=== PATIENT | female | born 1980 | race Caucasian/White ===

== ENCOUNTER → 2023-05-10 | Outpatient (CLI) | payer OTHER, SELFPAY ==
[2023-05-10 15:50] LABS: Absolute Lymphocyte Count 1.79 X10^3/uL (0.83-4.51); Absolute Neutrophil Count 3.8 X10^3/uL (2.0-7.7); Basophil# 0.02 X10^3/uL; Basophil% 0.3 % (0-1); Eosinophil# 0.03 X10^3/uL; Eosinophils% 0.5 % (0-5); Hematocrit 37.6 % (37-47); Hemoglobin 12.4 g/dL (12.0-15.0); Lymphocyte # 1.79 X10^3/ul (0.83-4.51); Lymphocyte % 29.5 % (19-41); Mean Corpuscular Hgb 28.4 pg (27.0-32.0); Mean Corpuscular Volume 86.2 fL (81-99); Mean Platelet Vol. 10.9 fl (6.2-12.0); Monocyte# 0.37 X10^3/uL; Monocyte% 6.1 % (0-10); NRBC Flagged by Analyzer 0 % (0-5); Neutrophil # 3.83 X10^3/uL (2.7-7.7); Neutrophil % 63.3 % (47-70); Platelet Count 199 K/mm3 (150-450); RBC Distribution Width CV 12.5 % (11.6-14.6); RBC Distribution Width SD 39.4 fl (35.1-43.9); Red Blood Count 4.36 M/mm3 (4.2-5.4); White Blood Count 6.1 K/mm3 (4.4-11.0)
--- OUTSIDE RECORDS SUMMARY | 2023-05-10 16:34 | XMS RPT_ITS | CCD ---
Author Name Unknown Address [facility] [place] [address] Organization [facility] Allergies Allergy Classification Reported Allergen(s) Allergy Type Date of Onset Reaction(s) Facility (1 source) Dust; Translations: [DUST] Propensity to adverse reactions (disorder) 6 [facility] Repository (1 source) OTHER; Translations: [OTHER] Propensity to adverse reactions (disorder) 6 [facility] Repository Results Test Name Value Interpretation Reference Range Facil ity Encounters Encounter Date Encounter Type Care Provider Facility Start: 04-22-2023 End: 04-22-2023 ambulatory Facility:[facility] Payers Date Payer Category Payer Unknown [id number] Progress note 04-22-2023 Note Date & Type Note Facility 04-22-2023 Note HNO ID: [id number] Author: Jose F Paulino APRN.[employer] Service: ? Author Type: Nurse Practitioner Type: Progress Notes Filed: 04/22/2023 12:03 PM Note Text: Subjective HPI Nontoxic-appearing female presents urgent care chief complaint eye pain. Duration of symptoms 5 days. Associated symptoms eye redness sensitivity eye pain. Patient states pain is 6-7 out of 10 at times. Eye redness is only improved with Visine. Denies any eye injury. No flashes light or floaters. No visual changes. Denies contact lens use. .Patient presents with: Eye Problem: Left eye pain and redness and sensitive to light x 5 days PAST MEDICAL HISTORY Diagnosis Date Abnormal glandular Papanicolaou smear of cervix 2000 Abn. Pap smear (cervix) PAST SURGICAL HISTORY Procedure Laterality Date COLPOSCOPY CERVIX UPPER/ADJACENT VAGINA 2000 Colposcopy ESSURE 2010 PAST SURGICAL HISTORY OF 2000 laser of cervix ALLERGIES Dust and Enviromental [Other] MEDICATIONS fluticasone (FLONASE) 50 mcg/actuation nasal spray Use 2 Sprays in each nostril once daily. fluconazole (DIFLUCAN) 150 mg tablet Take 1 tablet today and repeat in 3 days (Patient not taking: Reported on 06/09/2018 ) FAMILY HISTORY Problem Relation Age of Onset Hypertension Mother Hypertension Father Cancer Father lung cancer Alcohol/Drug Father etoh Heart Father Thyroid Nodule Brother Emphysema Maternal Grandmother Osteoporosis Maternal Grandmother Aneurysm Paternal Grandmother Social History Tobacco Use Smoking status: Former Packs/day: 1.00 Years: 2.00 Additional pack years: 0.00 Total pack years: 2.00 Types: Cigarettes Quit date: 08/13/2003 Years since quittin.7 Smokeless tobacco: Never Substance Use Topics Alcohol use: Yes Comment: RARELY TWICE YEARLY,NOT WHILE Drug use: No BP 110/78 Pulse 70 Temp 36.4 ?C (97.5 ?F) (Tympanic) Resp 18 Wt 71.9 kg (158 lb 9.6 oz) LMP 05/18/2018 (Exact Date) SpO2 99% BMI 25.22 kg/m? Review of Systems Constitutional: Negative for chills, fever and malaise/fatigue. HENT: Negative for congestion, ear discharge, ear pain, sinus pain and sore throat. Eyes: Positive for photophobia, pain, discharge and redness. Negative for blurred vision and double vision. Respiratory: Negative for cough, hemoptysis, sputum production, shortness of breath, wheezing and stridor. Cardiovascular: Negative for chest pain. Gastrointestinal: Negative for abdominal pain, diarrhea, nausea and vomiting. Musculoskeletal: Negative for myalgias. Skin: Negative for itching and rash. Neurological: Negative for dizziness and headaches. Objective Physical Exam Constitutional: General: She is not in acute distress. Appearance: She is not toxic-appearing. HENT: Head: Normocephalic. Nose: Nose normal. Eyes: General: Lids are everted, no foreign bodies appreciated. Vision grossly intact. Left eye: No foreign body, discharge or hordeolum. Extraocular Movements: Left eye: Normal extraocular motion and no nystagmus. Conjunctiva/sclera: Left eye: Left conjunctiva is injected. No chemosis, exudate or hemorrhage. Pupils: Pupils are equal, round, and reactive to light. Comments: Moderate redness noted left eye. Cardiovascular: Rate and Rhythm: Normal rate. Pulmonary: Effort: Pulmonary effort is normal. No respiratory distress. Musculoskeletal: Cervical back: Normal range of motion. Skin: General: Skin is warm and dry. Neurological: General: No focal deficit present. Mental Status: She is alert. ASSESSMENT/PLAN: 1. Pain of left eye - ICD9: 379.91, ICD10: H57.12 Visual acuity unchanged. Diagnosed with left eye pain. Concerned about possible uveitis. Recommended following up with ophthalmology today for further evaluation care. Patient states will call agricultural produce washer office at the completion of this visit. Jose F Paulino APRN.[facility] Summary Purpose Family History No Family History Records Found Advance Directives No Advanced Directives Records Found Additional Source Comments INFORMATION SOURCE (unrecogn ized section and content) FOR RECORDS PERTAINING TO PATIENTS WHO ARE OR HAVE BEEN ENROLLED IN A CHEMICAL DEPENDENCY/SUBSTANCEABUSE PROGRAM, SOME INFORMATION MAY BE OMITTED. This clinical summary was aggregated from multiple sources. Caution should be exercised in using it in the provision of clinical care. This summary normalizes information from multiple sources, and as a consequence, information in this document may materially change the coding, format and clinical context of patient data. In addition, data may be omitted in some cases. CLINICAL DECISIONS SHOULD BE BASED ON THE PRIMARY CLINICAL RECORDS. [employer] provides no warranty or guarantee of the accuracy or completeness of information in this document.
[2023-05-10 16:49] LABS: ALB/GLOB Ratio 1.1 RATIO (0.9-2.4); AST(SGOT) 16 U/L (15-37); Alanine Aminotransfer ALT/SGPT 17 U/L (13-56); Albumin, Serum 4.4 g/dL (3.2-5.0); Alkaline Phosphatase 61 U/L (45-117); Anion Gap 7 (5-15); BUN 8 mg/dL (7-18); BUN/Creat Ratio 12.6 RATIO (10-20); Calcium,Total 9.5 mg/dL (8.5-10.1); Chloride 103 mmol/L (98-107); Cholesterol 205 mg/dL (200); Creatinine, Serum 0.63 mg/dL (0.55-1.02); EST Glomerular Filtration Rate 109 mL/min (>60); Est Glom Filt Rate - Afr Amer 131 mL/min (>60); Globulin 3.9 g/dL (2.2-4.2); Glucose 86 mg/dL (74-106); High Density Lipoprotein 58 mg/dL; Potassium 4.1 mmol/L (3.5-5.1); Protein, Total 8.3 g/dL (6.4-8.2); Sodium Level 136 mmol/L (136-145); Triglycerides 43 mg/dL; Very Low Density Lipoprotein 9 mg/dL (5-40)
== END | disposition home or self-care (01) ==
LOC: BIMLAB 14:24
PROVIDERS: PCP Internal Medicine; Referring Provider Internal Medicine; Visit Provider Internal Medicine
DX: Z13.6 Encounter for screening for cardiovascular disorders (principal); Z13.1 Encounter for screening for diabetes mellitus
CPT/HCPCS: 36415; 80053; 80061; 85025

== ENCOUNTER → 2023-05-18 | Outpatient (CLI) | payer OTHER, SELFPAY ==
--- NOTE | 2023-05-18 16:11 | BI_ITS ---
MAMMOGRAPHY - BILATERAL SCREENING REASON FOR EXAM: Female, 42 years old. Routine annual screening examination. PERTINENT HISTORY: Non-contributory. TECHNIQUE: Digital bilateral breast erlinda (3D mammographic acquisition) in the CC and MLO projections. 2-D mediolateral oblique (MLO) and craniocaudad (CC) views of both breasts were obtained. CAD: Full Field Digital Mammography with Computer Added Detection was performed. COMPARISON: Comparison is made with prior outside examination dated November 01, 2012. FINDINGS: Breast Composition: The breasts are extremely dense, which lowers the sensitivity of mammography. There are no dominant masses or suspicious calcifications. No other significant abnormalities are identified. BI/SCRN MAMM (CAD)W/ERLINDA BILAT IMPRESSION: Stable bilateral screening mammogram. Yearly follow-up mammogram recommended. (A) ASSESSMENT CATEGORY: BIRADS Category 1: Negative. A letter regarding these results will be sent to the patient by the facility within 30 days. Approximately 10% of breast cancers are not detected by mammography. A normal mammogram should not delay biopsy of a clinically suspicious abnormality. [id number] Electronically Signed: Camron Cristina MD at 8:55 EST ,
--- OUTSIDE RECORDS SUMMARY | 2023-05-18 17:20 | XMS RPT_ITS | CCD ---
Author Name Unknown Address [facility] [place] [id number] Organization [facility] Allergies Allergy Classification Reported Allergen(s) Allergy Type Date of Onset Reaction(s) Facility (1 source) Dust; Translations: [DUST] Propensity to adverse reactions (disorder) 6 [facility] Repository (1 source) OTHER; Translations: [OTHER] Propensity to adverse reactions (disorder) 6 [facility] Repository Results Test Name Value Interpretation Reference Range Facil ity Encounters Encounter Date Encounter Type Care Provider Facility Start: 04-22-2023 End: 04-22-2023 ambulatory Facility:[facility] Payers Date Payer Category Payer Unknown [id number] Progress note 04-22-2023 Note Date & Type Note Facility 04-22-2023 Note HNO ID: [id number] Author: Jose F Paulino APRN.POCKET [employer]KER Service: ? Author Type: Nurse Practitioner Type: [...] further evaluation care. Patient states will call software sales manager office at the completion of this visit. Jose F Paulino APRN.[facility] Summary Purpose Family History No Family History [...] BE BASED ON THE PRIMARY CLINICAL RECORDS. [employer] provides no warranty or guarantee of the accuracy or completeness of information in this document.
== END | disposition home or self-care (01) ==
LOC: OPBI 16:11
PROVIDERS: PCP Internal Medicine; Referring Provider Internal Medicine; Visit Provider Internal Medicine
DX: Z12.31 Encounter for screening mammogram for malignant neoplasm of breast (principal)
CPT/HCPCS: 77063; 77067

== ENCOUNTER 2023-07-16 00:21 | Emergency (ER) | payer OTHER, SELFPAY ==
[2023-07-16 00:22] VITALS: BP 155/126; PULSE 95; RESP 16; TEMP 36.8; O2SAT 97
[2023-07-16 00:23] VITALS: BP 155/127; PULSE 83; RESP 16; TEMP 36.8; O2SAT 99; BMI 25.0
--- NOTE | 2023-07-16 00:31 | EDS_ITS ---
HPI History of Present Illness Chief Complaint: ETOH Intox Detail of Chief Complaint: Alcohol intoxication Informant: patient and EMS Narrative Narrative: Patient presents to the emergency department via EMS from home with complaint of alcohol intoxication. Her children called EMS because her friends had taken her to the bar when she came home she was quite intoxicated and vomiting. Patient denies any complaints although she is very poor historian. She did not know if she had been vomiting but there was emesis on her face. Patient was celebrating her birthday which is tomorrow. Patient denies any falls or head injuries. PFSH PFS Medical History (Updated 07/16/23 @ 06:[address] Antoinette Aguilar DO) Episcleritis Home Medications NK 07/16/23 [History Last Taken Unknown] Allergy/AdvReac Type Severity Reaction Status Date / Time No Known Allergies Allergy Verified 07/16/23 00:22 Family History (Updated 05/03/23 @ 17:[address] Marianne Dong MD) Mother Hypertension Alcoholism Anxiety Hyperlipidemia Optic neuropathy Brother Bleeding disorder Father Lung cancer Myocardial infarction Alcoholism Grandfather Alcoholism Sister Anxiety Depression Hyperlipidemia Aunt Anxiety Surgical History Encounter for Essure implantation Social History (Updated 05/03/23 @ 15:[address] Marianne Dong MD) adopted: No household members: children current occupational status: employed current occupation: [employer] pets and animals: Yes pets and animals: cat(s) and dog(s) history of recent travel: No Smoking Status: Former smoker pack-years: 6 Tobacco: How many years used: 6 Electronic Cigarette Use: not used alcohol intake: current alcohol intake frequency: holidays/special occasions only substance use type: does not use caffeine: Yes (3) Type: carbonated beverages frequency: does not exercise seatbelt use: always do you feel safe at home: Yes ROS ROS ED ROS Narrative Alcohol intoxication Review of Systems ROS Unobtainable: other Constitutional Constitutional ED: Reports lethargy; Denies chills, fever(s), sweats or weight loss Eyes Eyes: Denies blurry vision, change in vision or diplopia ENT ENT ED: Denies rhinorrhea or sore throat Cardiovascular Cardiovascular: Denies chest pain, orthopnea or racing heartbeat Respiratory/Chest Respiratory/Chest: Denies cough, dyspnea, dyspnea on exertion, orthopnea or sputum Gastrointestinal Gastrointestinal: Reports nausea and vomiting; Denies abdominal pain or diarrhea Genitourinary Genitourinary ED: Denies dysuria, hematuria or urinary frequency Musculoskeletal Musculoskeletal: Denies arthralgias, back pain, myalgias or neck pain Integumentary Denies abscess, Abrasions or rash Neurologic Neurologic: Denies headache(s) or weakness Psychiatric Psychiatric: Denies anxiety, depression or suicidal thoughts Endocrine Endocrinology: Denies polydipsia, polyphagia or polyuria Hematologic/Lymphatic Hematologic/Lymphatic: Denies easy bleeding, easy bruising or lymphadenopathy Allergic/Immunologic Allergic/Immunologic ED: Denies mouth swelling, tongue swelling or urticaria EXAM Physical Exam Const Vital Signs: 07/16/23 00:22 07/16/23 00:23 07/16/23 02:22 Temperature 98.3 F 98.3 F Temperature Source Oral Oral Pulse Rate 95 83 78 Respiratory Rate 16 16 18 Blood Pressure 155/126 H 155/127 H 111/56 L Blood Pressure Mean 135 136 74 Blood Pressure Source Monitor Blood Pressure Position Semi-Fowlers Blood Pressure Location Right Arm Pulse Ox 97 99 100 Oxygen Delivery Method Room Air 07/16/23 04:00 07/16/23 06:00 07/16/23 06:24 Temperature 97.8 F Temperature Source Pulse Rate 80 69 69 Respiratory Rate 18 18 16 Blood Pressure 115/70 104/75 104/75 Blood Pressure Mean 85 84 84 Blood Pressure Source Blood Pressure Position Blood Pressure Location Pulse Ox 99 99 Oxygen Delivery Method Positive well nourished and well developed General Appearance ED: well developed and NAD HEENT Reports TM's clear and moist mucous membranes normocephalic and atraumatic; Negative for trauma or tenderness Tympanic Membrane ED: Yes TM's clear Eyes PERRL and EOMs intact bilaterally General Eye ED: Negative for pale conjunctiva or scleral icterus Neck no lymphadenopathy, supple and no JVD General: Negative for tenderness Chest Wall inspection of chest normal and palpation of chest normal Chest: Negative for tenderness Resp normal respiratory effort and clear to auscultation bilaterally Effort and Inspection: Negative for respiratory distress or pain with movement Auscultation: Negative for rhonchi, wheezes or diminished lung sounds Cardio regular rate, regular rhythm, S1 normal heart sound, S2 normal heart sound and no murmurs Peripheral Pulses: pulses 2+ throughout GI normal to inspection, nondistended, normoactive bowel sounds, soft to palpation, non-tender, non-distended and no masses Back/Spine no CVA tenderness and no thoracic nor lumbar tenderness Extremity normal to inspection General Extremety ED: Negative for edema General Extremity: Negative for edema Neuro oriented x3, CN's II-XII intact bilaterally, no sensory deficits noted and gait normal Sensorium / Orientation: awake, alert, oriented to person, oriented to place and oriented to time Motor Exam: strength 5/5 throughout and strength abnormal Psych mental status grossly normal Skin no rashes or lesions noted and no wounds MDM MDM MDM Narrative Medical decision making narrative: Patient presents with alcohol intoxication. IV line established. She was medicated with Zofran IV. CBC with differential obtained showed a white count of 5.5 with hemoglobin 11.5 and platelet count of 214. Chemistries unremarkable. LFTs were normal. Alcohol was 266. hCG was negative. Patient will be observed in the emergency department till alcohol level normalizes. Patient has been here almost 6 hours and she had no further vomiting. She has been ambulatory to the bathroom. Will discharge when family members can pick her up. Lab Data Attestation: I reviewed the patient's lab results. Labs: Laboratory Results - last 24 hr 07/16/23 00:45 WBC 5.5 RBC 4.19 L Hgb 11.5 L Hct 36.2 L MCV 86.4 MCH 27.4 MCHC 31.8 L RDW Std Deviation 40.6 RDW Coeff of [place] 12.9 Plt Count 214 MPV 9.8 Immature Gran % (Auto) 0.200 Neut % (Auto) 82.1 H Lymph % (Auto) 13.7 L [place] % (Auto) 3.6 Eos % (Auto) 0.0 Baso % (Auto) 0.4 Absolute Neuts (auto) 4.5 Absolute Lymphs (auto) 0.76 L Nucleated RBC % 0 Sodium 143 Potassium 3.9 Chloride 110 H Carbon Dioxide 27.0 Anion Gap 6 BUN 7 Creatinine 0.58 Estim Creat Clear Calc 121.62 Est GFR (MDRD) Af Amer 145 Est GFR (MDRD) Non-Af 120 BUN/Creatinine Ratio 12.0 Glucose 119 H Calcium 8.8 Total Bilirubin 0.20 AST 19 ALT 19 Alkaline Phosphatase 59 Total Protein 7.9 Albumin 4.2 Globulin 3.7 Albumin/Globulin Ratio 1.1 Serum , Qual NEGATIVE Ethyl Alcohol 266.0 Discharge Plan Triage Chief Complaint: ETOH Intox ED Provider: Antoinette Aguilar Dx/Rx/DC Orders Clinical Impression: Alcohol intoxication Instructions: ED Alcohol Intoxication Prescriptions: No Action NK Primary Care Provider: Marianne Dong Referrals: Marianne Dong MD [Primary Care Provider] - 3-5 Days Disposition Disposition: Home, Self Care Discharge Date/Time: 07/16/23 06:25
[2023-07-16] MEDS: 0.9% Normal Saline (1000mL) 1,000 ML 1000 ML IV (00:44)
[2023-07-16] MEDS: Ondansetron 4 MG/2 ML Vial IV (00:44)
[2023-07-16 00:54] LABS: Absolute Lymphocyte Count 0.76 X10^3/uL (0.83-4.51); Absolute Neutrophil Count 4.5 X10^3/uL (2.0-7.7); Basophil# 0.02 X10^3/uL; Basophil% 0.4 % (0-1); Hematocrit 36.2 % (37-47); Hemoglobin 11.5 g/dL (12.0-15.0); Lymphocyte # 0.76 X10^3/ul (0.83-4.51); Lymphocyte % 13.7 % (19-41); Mean Corp Hgb Conc 31.8 g/dL (32-36); Mean Corpuscular Hgb 27.4 pg (27.0-32.0); Mean Corpuscular Volume 86.4 fL (81-99); Mean Platelet Vol. 9.8 fl (6.2-12.0); Monocyte% 3.6 % (0-10); NRBC Flagged by Analyzer 0 % (0-5); Neutrophil # 4.54 X10^3/uL (2.7-7.7); Neutrophil % 82.1 % (47-70); Platelet Count 214 K/mm3 (150-450); RBC Distribution Width CV 12.9 % (11.6-14.6); RBC Distribution Width SD 40.6 fl (35.1-43.9); Red Blood Count 4.19 M/mm3 (4.2-5.4); White Blood Count 5.5 K/mm3 (4.4-11.0)
[2023-07-16 01:04] LABS: Internal QC Validated? YES +Cl - CLEAR BKGD; Pregnancy, Serum, hCG Quali. NEGATIVE Negative
[2023-07-16 01:12] LABS: ALB/GLOB Ratio 1.1 RATIO (0.9-2.4); AST(SGOT) 19 U/L (15-37); Alanine Aminotransfer ALT/SGPT 19 U/L (13-56); Albumin, Serum 4.2 g/dL (3.2-5.0); Alkaline Phosphatase 59 U/L (45-117); Anion Gap 6 (5-15); BUN 7 mg/dL (7-18); Calcium,Total 8.8 mg/dL (8.5-10.1); Chloride 110 mmol/L (98-107); Creatinine, Serum 0.58 mg/dL (0.55-1.02); EST Glomerular Filtration Rate 120 mL/min (>60); Est Glom Filt Rate - Afr Amer 145 mL/min (>60); Estimated Creatinine Clearance 121.62 ml/min; Globulin 3.7 g/dL (2.2-4.2); Glucose 119 mg/dL (74-106); Potassium 3.9 mmol/L (3.5-5.1); Protein, Total 7.9 g/dL (6.4-8.2); Sodium Level 143 mmol/L (136-145)
[2023-07-16 02:22] VITALS: BP 111/56; PULSE 78; RESP 18; O2SAT 100
[2023-07-16 04:00] VITALS: BP 115/70; PULSE 80; RESP 18
[2023-07-16 06:00] VITALS: BP 104/75; PULSE 69; RESP 18; O2SAT 99
[2023-07-16 06:24] VITALS: BP 104/75; PULSE 69; RESP 16; TEMP 36.6; O2SAT 99
== END 2023-07-16 06:25 | disposition home or self-care (01) ==
PROVIDERS: Emergency Provider Emergency Medicine; PCP Internal Medicine; Visit Provider Emergency Medicine
DX: F10.129 Alcohol abuse with intoxication, unspecified (principal); Z87.891 Personal history of nicotine dependence; Y90.8 Blood alcohol level of 240 mg/100 ml or more
CPT/HCPCS: 80053; 80320; 84703; 85025; 96361; 96374; 99283; J7030; A4216; G0480; J2405

== ENCOUNTER → 2023-11-02 | Outpatient (CLI) | payer OTHER, SELFPAY ==
[2023-11-02 15:21] LABS: HIV - WCH Non-Reactive (Nonreactive); Hepatitis B Surface Antigen Non-Reactive (Nonreactive); Hepatitis C Antibody Non-Reactive (Nonreactive); Syphilis Antibodies Non-reactive
[2023-11-04 05:07] LABS: HSV 1 IgG < 0.91 index (0.00-0.90); HSV 2 IgG 1.99 index (0.00-0.90)
[2023-11-05 13:10] LABS: Chlamydia By Nucleic Acid AMP Negative (Negative); Gonococcus By Nucleic Acid AMP Negative (Negative)
[2023-11-07 13:07] LABS: HPV APTIMA, High Risk Negative (Negative)
== END | disposition home or self-care (01) ==
PROVIDERS: PCP Internal Medicine; Referring Provider Nurse Practitioner Family; Visit Provider Nurse Practitioner Family
DX: Z11.3 Encounter for screening for infections with a predominantly sexual mode of transmission (principal)
CPT/HCPCS: 36415; 86695; 86696; 86703; 86780; 86803; 87340; 87491; 87591; 87624; 88175; G0145

== ENCOUNTER → 2023-11-15 | Outpatient (CLI) | payer OTHER, SELFPAY ==
--- NOTE | 2023-11-15 17:51 | US_ITS ---
INDICATION: BTB EXAMINATION: Ultrasound US Pelvis Non OB w/ Transvag and Vascular Doppler Complete COMPARISON: None. FINDINGS: 108 grayscale ultrasound images of the pelvis obtained both transabdominally and transvaginally. In addition dedicated ovarian color Doppler and Doppler waveform interrogation was performed. UTERUS: Uterus measures : 9.8 x 6.6 x 3.8 cm. Endometrial thickness of 0.6 cm. Myometrium is unremarkable. ADNEXA: Flow is documented to bilateral ovaries by color Doppler as well as Doppler waveform. 1.3 cm anechoic left ovarian lesion consistent with dominant follicle. Right ovary is unremarkable. No significant free fluid. URINARY BLADDER: adequately distended without obvious abnormality, 109 cc volume. US/Pelvic w/ Transvaginal IMPRESSION: Dominant 1.3 cm left ovarian follicle. Otherwise unremarkable pelvic ultrasound. Electronically Signed: Herbie Pack MD at 5:59 EDT ,
== END | disposition home or self-care (01) ==
PROVIDERS: PCP Internal Medicine; Referring Provider Nurse Practitioner Family; Visit Provider Nurse Practitioner Family
DX: N92.6 Irregular menstruation, unspecified (principal)
CPT/HCPCS: 76830; 76856

== ENCOUNTER → 2023-11-18 | Outpatient (CLI) | payer OTHER, SELFPAY ==
[2023-11-18 16:13] LABS: ALB/GLOB Ratio 1.1 RATIO (0.9-2.4); AST(SGOT) 17 U/L (15-37); Alanine Aminotransfer ALT/SGPT 17 U/L (13-56); Albumin, Serum 3.8 g/dL (3.2-5.0); Alkaline Phosphatase 61 U/L (45-117); Anion Gap 4 (5-15); BUN 7 mg/dL (7-18); BUN/Creat Ratio 10.9 RATIO (10-20); Calcium,Total 9.2 mg/dL (8.5-10.1); Chloride 104 mmol/L (98-107); Creatinine, Serum 0.64 mg/dL (0.55-1.02); EST Glomerular Filtration Rate 106 mL/min (>60); Est Glom Filt Rate - Afr Amer 129 mL/min (>60); Globulin 3.6 g/dL (2.2-4.2); Glucose 90 mg/dL (74-106); Potassium 3.9 mmol/L (3.5-5.1); Protein, Total 7.4 g/dL (6.4-8.2); Sodium Level 137 mmol/L (136-145); T4 Free Direct 0.93 ng/dL (0.76-1.46); Thyroid Stim Hormone (TSH) 0.73 uIU/mL (0.358-3.74)
[2023-11-20 11:07] LABS: HSV 1 IgG < 0.91 index (0.00-0.90)
== END | disposition home or self-care (01) ==
LOC: LAB 14:43
PROVIDERS: PCP Internal Medicine; Referring Provider Nurse Practitioner Family; Visit Provider Nurse Practitioner Family
DX: N92.6 Irregular menstruation, unspecified (principal); Z13.29 Encounter for screening for other suspected endocrine disorder; R76.8 Other specified abnormal immunological findings in serum
CPT/HCPCS: 36415; 80053; 84439; 84443; 86695; 86696